=== PATIENT | female | born 1975 | race Caucasian/White ===

== ENCOUNTER 2024-07-19 12:54 | Emergency (ER) | payer BC, SELFPAY ==
[2024-07-19 13:00] VITALS: BP 144/98
--- NOTE | 2024-07-19 14:02 | ED.GENMED ---
History of Present Illness
General
Chief Complaint: Chest Pain
Source: patient
Time Seen by Provider: 07/19/24 13:44
History of Present Illness
History of Present Illness:
49-year-old female presents to the emergency room complaining of chest pain. She is having chest discomfort for the past couple days. It is intermittent but seems like it occurs mostly in the morning and then gets better through the course of the
day. No real shortness of breath. No difficulty performing daily activities. She is not having chest pain with exertion. Patient denies any fever or chills. She does have pain if she pushes on her chest.
Past History
Past History
ED Past Medical History: None
ED Past Surgical History: None
Social History
Tobacco: Non-smoker
Alcohol: None
Drug: None
Personal:
Living: with family
Employment: Employed
Family History
Family History: Other (Noncontributory)
Phy Exam
Physical Exam
Physical Exam:
General: Awake, Alert, Oriented X3. No acute distress.
Vitals: unremarkable
Head: Atraumatic
Eyes: Pupils equal, EOMI
Throat: Airway intact, no exudates
Neck: Trachea midline
Chest: Tenderness palpation anterior chest
Lungs: Clear and equal b/l
Heart: Regular rate, no murmurs
Abd: Soft, Nontender, No pulsatile mass
Neuro: Nonfocal
Skin: Warm, dry, no rash
Extremities: pulses equal b/l, no edema
Scores
Heart Score for Chest Pain Patients
STEMI patient?: No
History: Slightly or Non-Suspicious
ECG: Normal
Age: >45 - <65 years
Risk Factors: 1 or 2 Risk Factors
Troponin: </= Normal Limit
Heart Score for Chest Pain Patients: 2
Heart Score Risk: 2.5% MACE over next 6 weeks
Course
Orders/Labs/Results
Orders:
Orders
07/19/24 12:56
ECG [Electrocardiogram (*1)] Urgent
Reason for Study: Chest Pain
07/19/24 12:57
EKG- Treatment ONCE
07/19/24 13:48
Complete Blood Count/With Diff Urgent
Comprehensive Metabolic Panel Urgent
Troponin I Urgent
07/19/24 14:16
CR Chest - 2 Views Urgent
Comment:
Reason For Exam: chest pain
07/19/24 15:38
Vital Signs- Treatment ONCE
Frequency: Once
07/19/24 15:58
Ibuprofen [Motrin] 400 mg PO NOW STA
Abnormal Lab Results
07/19/24
13:48
MPV 11.4 H fL
(7.4-10.4)
Glucose 108 H mg/dl
(70-99)
07/19/24 13:48
07/19/24 13:48
Vital Signs
Initial and Last Documented VS:
Initial Vital Signs
Temp Pulse Resp BP Pulse Ox
98.9 F 107 16 144/98 100
07/19/24 13:00 07/19/24 13:00 07/19/24 13:00 07/19/24 13:00 07/19/24 13:00
Last Documented Vital Signs
Temp Pulse Resp BP Pulse Ox
98.9 F 83 12 125/80 100
07/19/24 13:00 07/19/24 16:00 07/19/24 16:00 07/19/24 16:00 07/19/24 16:00
MDM/Problems Addressed
Differential Diagnosis Includes:
ACS, chest wall pain, pneumothorax, pneumonia
MDM/Problems Addressed:
Patient presents with chest discomfort that has been present for the past couple days. It waxes and wanes in intensity. Discomfort was there when she woke this morning. EKG here shows no acute ischemic changes. White count hemoglobin are normal.
Chemistries are reassuring. Troponin is normal. Chest x-ray shows no acute pulmonary abnormality per radiology. On exam the patient does have tenderness to palpation on the anterior chest. I did not observe a rash. Suspect the patient has
costochondritis. Patient stable for discharge home and follow-up with her primary care provider.
Chronic conditions affecting care: HTN
*Radiology
Radiology exam reviewed: preliminary read by ED provider (No acute disease)
*Pulse Oximetry
Patient hypoxic: no
*EKG
Interpreted by ED Provider?: Yes
Heart Rate: 96
Rate: normal
Rhythm: sinus
[place]: normal axis
Interval: normal interval
QRS Pattern: normal QRS
Ischemia: non-specific ST changes
*Chassis [employer]ic Interpretation
Rate: normal
Interpretation: normal
Rhythm: sinus
*Critical Care Note
Total Time (30-74mins, 75-104mins- exclusive of procedures): Not Applicable
ED Attending Note
-
Portions of this chart may have been created with voice recognition software.� Occasional wrong word or��sound alike� substitutions may have occurred due to the inherent limitations of voice recognition software.
Discharge Plan
Departure
Patient Disposition: Home (Routine Discharge)
Date of Disposition: 07/19/24
Time of Disposition: 15:59
Patient with high blood pressure during this ER visit?: No
Condition: Good
Discharge Problem:
Chest pain, Acute costochondritis
Instructions: Costochondritis (DC)
Prescriptions:
No Action
[id number] [ Multi] 1 EACH tablet
1 ea PO DAILY
Referrals:
NONE,* [Family Provider] -
Interventions
Interventions:
*Risk Screen - Suicide Last Done: 07/19/24 13:00
*General Assessment Last Done: 07/19/24 13:00
*Neglect/Abuse Screening Last Done: 07/19/24 13:00
ED- Fall Risk Assessment Last Done: 07/19/24 15:07
*ED COVID-19 Vaccine History Last Done: 07/19/24 13:00
*Nursing Disposition Last Done: 07/19/24 16:16
ED- Cardiac Assessment Last Done: 07/19/24 15:07
Discharge Date and Time
Discharge Date/Time: 07/19/24 16:16
Print Language: ITALIAN
[2024-07-19 14:11] LABS: % Basophils 0.8 % (0-2); % Eosinophils 0.3 % (0-6); % Immature Granulocytes 0.5 % (0-0.5); % Lymphocytes 27.2 % (20.5-51.1); % Monocytes 8.1 % (1.7-9.3); % Neutrophils 63.1 % (42.2-75.2); Absolute Basophils 0.1 10^3/uL (0-0.2); Absolute Lymphocytes 1.8 10^3/uL (1.2-3.4); Absolute Monocytes 0.5 10^3/uL (0.1-0.6); Absolute Neutrophils 4.2 10^3/uL (1.4-6.5); Hematocrit 41.5 % (37.0-47.0); Hemoglobin 14.3 g/dL (12.0-16.0); Mean Corp Hgb Conc. 34.5 g/dL (33.0-37.0); Mean Corpuscular Hgb 30.5 pg (27.0-31.0); Mean Corpuscular Volume 88.5 fL (81.0-99.0); Mean Platelet Volume 11.4 fL (7.4-10.4); Nucleated Red Blood Cells % 0 %; Platelet Count 294 10^3/uL (130-400); Red Blood Cell Count 4.69 10^6/uL (4.20-5.40); Red Cell Dist. Width 13.5 % (11.5-14.5); White Blood Cell Count 6.6 10^3/uL (4.8-10.8)
[2024-07-19 14:39] LABS: ALT (SGPT) 20 U/L (0-35); AST (SGOT) 23 U/L (14-36); Albumin 4.3 g/dl (3.5-5.0); Alkaline Phosphatase 90 U/L (38-126); Blood Urea Nitrogen 17 mg/dl (7-17); Calcium 9.7 mg/dl (8.4-10.2); Carbon Dioxide 23 mmol/L (22-30); Chloride 105 mmol/L (98-107); Glucose 108 mg/dl (70-99); Potassium 4.2 mmol/L (3.5-5.1); Sodium 138 mmol/L (135-145); Total Bilirubin 0.5 mg/dl (0.2-1.3); Total Protein 7.1 g/dl (6.3-8.2); Troponin I < 0.012 ng/ml; eGFR > 60.00
[2024-07-19 15:43] VITALS: BP 132/89
[2024-07-19 16:00] VITALS: BP 125/80
[2024-07-19] MEDS: MOTRIN 400 MG PO (16:12)
== END 2024-07-19 16:16 | disposition home or self-care (01) ==
LOC: EMR 12:54
PROVIDERS: Student in an Organized Health Care Education/Training Program; EMERGENCY PHYSICIAN Emergency Medicine
DX: R07.89 Other chest pain (principal); M94.0 Chondrocostal junction syndrome [Tietze]; I10 Essential (primary) hypertension
CPT/HCPCS: 99283; 71046; 80053; 84484; 85025; 93005

== ENCOUNTER 2024-10-25 06:22 | Day surgery (SDC) | payer BC, SELFPAY | END 2024-10-25 14:09 | disposition home or self-care (01) | LOC: GI 06:22 | PROVIDERS: ATTENDING PHYSICIAN Internal Medicine | DX: Z12.11 Encounter for screening for malignant neoplasm of colon (principal); K64.4 Residual hemorrhoidal skin tags; K57.30 Diverticulosis of large intestine without perforation or abscess without bleeding; K64.8 Other hemorrhoids; D12.3 Benign neoplasm of transverse colon; Z83.719 Family history of colon polyps, unspecified | CPT/HCPCS: 45380; 88305 ==

== ENCOUNTER → 2025-01-31 09:25 | Outpatient (REF) | payer BC, SELFPAY | LOC: WDC 09:25 | PROVIDERS: ATTENDING PHYSICIAN Obstetrics & Gynecology; FAMILY PHYSICIAN Family Medicine | DX: R92.8 Other abnormal and inconclusive findings on diagnostic imaging of breast (principal) | CPT/HCPCS: 76642; 77061; 77065 ==